=== PATIENT | male | born 1990 ===

== ENCOUNTER 2016-12-30 19:03 | Emergency (ER) | payer MEDICAID ==
[2016-12-30 19:22] VITALS: BP 125/76; PULSE 76; RESP 16; TEMP 99.5; O2SAT 98
--- NOTE | 2016-12-30 20:45 | ED PDOC ---
Lower Extremity Pain/Injury Time Seen by Provider: 12/30/16 20:26 Chief Complaint (Nursing): Lower Extremity Problem/Injury Chief Complaint (Provider): Right knee pain History Per: Patient History/Exam Limitations: no limitations Onset/Duration Of Symptoms: Days (3) Current Symptoms Are (Timing): Still Present Additional History Per: Patient Additional Complaint(s): 26yo male, presents to the ED for evaluation of right knee pain, present for the past 3 days but progressively worsening, prompting his visit. Patient states he was playing basketball, jumped and landed on his right leg after which he heard two cracking sounds and his knee " bent to the right and left." Patient reports pain to his knee and is unable to fully extend or bend at his knee. He denies any numbness or tingling; patient denies taking medications for his pain. No other complaints. - Knee Currently Unable To: Straighten, Bend Or Move Past Medical History Reviewed: Historical Data, Nursing Documentation, Vital Signs Vital Signs: Last Vital Signs Temp 99.5 F 12/30/16 19:20 Pulse 76 12/30/16 19:20 Resp 16 12/30/16 19:20 BP 125/76 12/30/16 19:20 Pulse Ox 98 12/30/16 19:20 - Medical History PMH: No Chronic Diseases - Surgical History Surgical History: No Surg Hx - Family History Family History: States: No Known Family Hx - Home Medications Home Medications: Ambulatory Orders Medication Instructions Recorded Ibuprofen [Motrin Tab] 800 mg PO Q6H PRN #20 tab 12/30/16 oxyCODONE/Acetaminophen [Percocet 1 ea PO Q6H PRN #15 tab 12/30/16 5/325 mg Tab] - Allergies Allergies/Adverse Reactions: Allergies Allergy/AdvReac Type Severity Reaction Status Date / Time No Known Allergies Allergy Verified 12/30/16 19:20 Review of Systems Musculoskeletal: Positive for: Leg Pain (right knee pain) Neurological: Negative for: Numbness, Other (tingling) Physical Exam - Reviewed Nursing Documentation Reviewed: Yes Vital Signs Reviewed: Yes - Physical Exam Appears: Positive for: Non-toxic, No Acute Distress Head Exam: Positive for: ATRAUMATIC, NORMAL INSPECTION, NORMOCEPHALIC Skin: Positive for: Normal Color Neck: Positive for: Supple Respiratory: Negative for: Respiratory Distress Extremity: Positive for: Swelling (swelling and tenderness noted to right knee) . Negative for: Normal ROM (decreased ROM due to pain), Deformity Neurologic/Psych: Positive for: Alert, Oriented - ECG O2 Sat by Pulse Oximetry: 98 (RA) Pulse Ox Interpretation: Normal Medical Decision Making Medical Decision Making: Time: 2031 Impression: Right knee pain Plan: - XR Right knee -- Motrin 600 mg PO Time: 2129 XR reviewed and shows no dislocations or fractures. Patient to be placed in a knee immobilizer; given instructions to follow up with orthopedist. Knee immobilizer and crutches given to the patient. Discussed f/u with orthopedics. Scribe Attestation: Documented by Raquel Mendoza, acting as a scribe for Mitra Gamino PA-C Provider Scribe Attestation: All medical record entries made by the Scribe were at my direction and personally dictated by me. I have reviewed the chart and agree that the record accurately reflects my personal performance of the history, physical exam, medical decision making, and the department course for this patient. I have also personally directed, reviewed, and agree with the discharge instructions and disposition. Disposition - Clinical Impression Clinical Impression: Knee injury - Patient ED Disposition Is Patient to be Admitted: No Counseled Patient/Family Regarding: Diagnosis, Need For Followup, Rx Given - Disposition Referrals: Beckie Casas MD [Staff Provider] - Disposition: Routine/Home Disposition Time: 21:31 Condition: STABLE Prescriptions: Ibuprofen [Motrin Tab] 800 mg PO Q6H PRN #20 tab PRN Reason: Pain oxyCODONE/Acetaminophen [Percocet 5/325 mg Tab] 1 ea PO Q6H PRN #15 tab PRN Reason: Pain, Severe (8-10) Instructions: Knee Immobilizer (ED) Forms: [employer] (Nepali)
[2016-12-30] MEDS ORDERED: Oxycodone/Acetaminophen 5/325 mg Tab PO STA (22:08)
[2016-12-30] MEDS ORDERED: Oxycodone/Acetaminophen 5/325 mg Tab ONE (22:16)
--- NOTE | 2016-12-31 07:13 | RAD ---
PROCEDURE: Right Knee Radiographs. HISTORY: pain, popping sensation COMPARISON: None. FINDINGS: BONES: Normal. No fracture. JOINTS: Normal. No osteoarthritis. JOINT EFFUSION: Small suprapatellar joint effusion. OTHER FINDINGS: None. IMPRESSION: Suprapatellar joint effusion. Please note: No preliminary interpretation of this examination rendered by emergency department personnel (Physician and/or PA declined to provide preliminary report of their findings/ observations).
== END 2016-12-30 22:51 | disposition home or self-care (01) ==
LOC: H.ER 19:03
DX: S89.91XA Unspecified injury of right lower leg, initial encounter (principal); W22.8XXA Striking against or struck by other objects, initial encounter; Y92.89 Other specified places as the place of occurrence of the external cause